=== PATIENT | female | born 1990 | race Caucasian/White ===

== ENCOUNTER 2017-09-25 19:13 | Emergency (ER) | payer OTHER ==
[~2017-09-25] VITALS: Ht 165.1 cm; Wt 76.4 kg
[2017-09-25] MEDS ORDERED: CLON0.25 PO (19:37)
[2017-09-25] MEDS ORDERED: BUPR15TA PO (19:37)
[2017-09-25] MEDS ORDERED: VITA100L PO (19:37)
[2017-09-25 22:42] VITALS: BP 120/76
== END 2017-09-25 22:48 | disposition home or self-care (01) ==
LOC: M ED 19:13
DX: F31.9 Bipolar disorder, unspecified (principal); Z79.899 Other long term (current) drug therapy